=== PATIENT | male | born 1955 | race Caucasian/White ===

== ENCOUNTER → 2018-05-20 | Outpatient (CLI) | payer BC | LOC: M.MRI 07:01 | DX: S46.912A Strain of unspecified muscle, fascia and tendon at shoulder and upper arm level, left arm, initial encounter (principal); S43.402A Unspecified sprain of left shoulder joint, initial encounter; M19.012 Primary osteoarthritis, left shoulder; M75.32 Calcific tendinitis of left shoulder; X58.XXXA Exposure to other specified factors, initial encounter; Y93.89 Activity, other specified; Y92.89 Other specified places as the place of occurrence of the external cause; Y99.8 Other external cause status ==

== ENCOUNTER → 2018-06-27 | Day surgery (SDC) | payer BC ==
[~2018-06-27] MED LIST: ASPIRIN325 PO; LISINOPRIL-HCT1 EAC1 PO; NAPROSYN500 MG PO; OXYCODONE HCL 55 MG PO; TRAMADOL 50 MG50 MG PO; ZOCOR20 MG PO
--- NOTE | ~2018-06-27 | OP ---
[address] [address] OPERATIVE REPORT Name: CHANDNI SALDIVAR Room: [facility].#: [id number] Admission: 06/27/18 Attend Phys: Ivan Olguin DO Discharge: Date of : 55 Report #: [id number] THIS REPORT FOR: //name// CC: Sid Olguin DICTATED BY: Washington Mccurdy DO DATE OF SERVICE: 06/27/2018 PREOPERATIVE DIAGNOSIS: Left shoulder massive rotator cuff tear. POSTOPERATIVE DIAGNOSIS: Left shoulder massive rotator cuff tear. PROCEDURE PERFORMED: 1. Left shoulder arthroscopy. 2. Subacromial decompression. 3. Open acromioplasty. 4. Open rotator cuff repair. SURGEON: Ivan Olguin DO. CONFIGURATION TECHNICIAN: Washington Mccurdy DO ANESTHESIA: General with an interscalene block. ESTIMATED BLOOD LOSS: 10 mL. COMPLICATIONS: None. DISPOSITION: Stable to PACU to be discharged home. INDICATIONS FOR PROCEDURE: The patient is a pleasant 63-year-old male who has been following in the outpatient orthopedic clinic with longstanding left shoulder pain. He has tried several conservative measures of management including corticosteroid injections, NSAID analgesia and activity modifications. He continued to be symptomatic to the point where it is affecting his quality of life. We obtained an MRI of the left shoulder, which demonstrated a massive rotator cuff tear. We discussed treatment options including surgical intervention with left shoulder arthroscopy and rotator cuff repair. Risks, benefits, complications and alternatives of the procedure were discussed with the patient in detail. Risks include but are not limited to blood loss, infection, DVT, PE, failure to alleviate symptoms, need for repeat surgery, and complications of anesthesia. The patient expressed understanding [place] [id number] OPERATIVE REPORT Name: YARIELCHANDNI GOMEZ Room: [facility]..#: [id number] Admission: 06/27/18 Attend Phys: Ivan Olguin DO Discharge: Date of : 55 Report #: [id number] FINDINGS: Upon entering the shoulder joint, there was noted to be absent bicep tendon. There was some inflammatory synovitis noted throughout the shoulder and some degenerative fraying of the labrum anteriorly. There was a massive rotator cuff tear noted involving nearly the entirety of the supraspinatus tendon that was slightly retracted yet mobile. The subscapularis tendon was noted to be intact. The articular cartilage was intact as well. Examination of the subacromial space demonstrated extensive bursal tissue and was noted to be very tight space. DESCRIPTION OF PROCEDURE: The patient was transferred to the operating suite and placed on the operating table in supine position. He was given the benefit of general anesthesia. He was then placed into the beach chair position. The right shoulder area was then prepped and draped in the usual sterile fashion. A timeout was taken to confirm the appropriate patient identification, operative site, procedure to be performed. All in the room were in agreement time-out. Procedure began by incising the posterior viewing portal using an 11 blade scalpel. The camera trocar was then inserted in the shoulder and diagnostic arthroscopy ensued. The above-mentioned findings were noted. The anterior portal was then established under direct visualization using an 18-gauge spinal needle followed by a blunt trocar. Arthroscopic shaver was then inserted into the joint. The inflamed synovitis and the degenerative labrum were then debrided using the arthroscopic shaver. We then used the arthroscopic shaver to prepare the footprint at our attachment site for a rotator cuff repair. The cortical bone was debrided down to the point of good bleeding bone bed. The arthroscope was then inserted into the subacromial space. A lateral portal was established under direct visualization using 18 gauge spinal needle followed by blunt trocar. The arthroscopic shaver was then inserted into the lateral portal. The subacromial decompression was then performed using a combination of the vapor wand and the arthroscopic shaver. The vapor wand was used to debride tissue and inflammation superior along the acromion. The arthroscopic shaver was then used to debride bursal tissue off of the rotator cuff. This allowed for visualization of the rotator cuff tear from a superior viewing point. Again, the cuff tear was noted to be very extensive from an anterior to posterior positioning. Due to the large nature of the rotator cuff, we then elected to convert the procedure to an open rotator cuff repair. A 15 blade scalpel was used to incise approximately 4 cm incision of the anterolateral corner of the acromion. Subcutaneous tissue was dissected sharply down to the deltoid fascia. The deltoid fascia was then split sharply and the fibers of the deltoid were split bluntly down to the level of the rotator cuff. The rotator cuff was well visualized through the deltoid split approach; however, the subacromial space was noted to be very tight without much working room. We then elected to perform an acromioplasty using a high speed bur. The high speed bur was used to shave down the inferior aspect of the acromion. This [address] [address] OPERATIVE REPORT Name: CHANDNI SALDIVAR Room: [facility]#: [id number] Admission: 06/27/18 Attend Phys: Ivan Olguin Discharge: Date of : 55 Report #: [id number] opened up the subacromial space and allowed for more room for the rotator cuff. We then proceeded to repair the rotator cuff using a SpeedBridge construct. Once the first two medial anchors were positioned and anchored into the lateral articular margin. There was noted to be still plenty of room for a third anchor medially. We then elected to place a third anchor in our medial row. Suture from all of our medial anchors were then passed through the rotator cuff. After the suture, the FiberTape were passed through the rotator cuff. The rotator cuff was noted to lay down nicely onto our previously prepared bone bed. A perrin elevator was used to release some adhesions along the superior portion of the rotator cuff, which allowed for better excursion of our tendon. Once these three medial anchors were positioned appropriately and FiberTape was passed through the cuff. We then created a lateral row using 2 anchors. One suture from each of our medial row was inserted with each lateral row anchor. After the final two anchors were positioned, the rotator cuff was visualized and inspected. There was noted to be a good repair without any significant dog ears or residual tears. After the final repair, the shoulder was then thoroughly irrigated. The anterior portion of the deltoid was repaired back down to the acromion using a #2 FiberWire in a [id number] fashion. We then ran a 2-0 Vicryl to close the deltoid fascia. A 2-0 Vicryl was then used to close the subacromial tissue. Final skin closure was performed with a 3-0 V-Loc in a running fashion followed by Dermabond skin glue. The portal sites were closed with 3-0 nylon in a standard interrupted fashion. Sterile dressings were applied consisting of Xeroform and 4 x 4's over the portal sites. A Mepilex dressing was placed on the larger open incision. The patient was placed into a slingshot immobilizer. He was transferred to PACU in stable condition. By: [id number] Amari Olguin DO /sadia
[2018-06-27 10:02] LABS: HEMATOCRIT 44.6 % (42.0-52.0); HEMOGLOBIN 15.2 gm/dL (14.0-18.0); MCH 33.1 pg (26.0-34.0); MCHC 34.1 g/dL (28.0-37.0); MCV 96.8 fL (80.0-100.0); MPV 8.7 fl. (7.2-11.1); RBC 4.61 mil/uL (4.50-6.00); RDW-CV 13.4 % (10.5-14.5); WBC 7.9 thou/uL (4.0-11.0)
[2018-06-27 10:42] LABS: CALCIUM 9.9 mg/dL (8.5-10.1); CREATININE 0.9 mg/dL (0.6-1.3); POTASSIUM 4.3 mmol/L (3.5-5.1)
[2018-06-27 10:46] LABS: ALBUMIN 3.8 g/dL (3.4-5.0); TOTAL BILIRUBIN 0.5 mg/dL (<0.1-1.0); TOTAL PROTEIN 6.9 g/dL (6.4-8.2)
--- NOTE | 2018-06-27 16:42 | EKG ---
[place] [address] ELECTROCARDIOGRAM REPORT Name: CHANDNI SALDIVAR Room: [facility].#: [id number] Admission: 06/27/18 Attend Phys: Ivan Olguin DO Discharge: Date of : 55 Report #: [id number] THIS REPORT FOR: //name// [facility] Test Date: 2018-06-27 Test Time: 10:08:31 Pat Name: CHANDNI SALDIVAR Department: Room: Gender: M Healthcare Educator: : 1955 Requested By: Osman Renteria Order Number: [id number] Sejal MD: Osorio Stephens Measurements Intervals [place] Rate: 68 P: 22 DC: 159 QRS: -37 QRSD: 129 T: 102 QT: 386 QTc: 411 Interpretive Statements Sinus rhythm Nonspecific IVCD with LAD LVH with secondary repolarization abnormality No previous ECG available for comparison Electronically Signed On 06-27-2018 16:42:24 [employer] by Osorio Stephens [email or web address] <ELECTRONICALLY SIGNED> By: Osorio Stephens MD, [facility] 06/27/18 1642 [id number] [id number] Osorio Stephens MD, FACC /EPI
== END | disposition home or self-care (01) ==
LOC: M.SUR 06:37
PROVIDERS: Anesthesiology
DX: M75.102 Unspecified rotator cuff tear or rupture of left shoulder, not specified as traumatic (principal); Z79.899 Other long term (current) drug therapy; Z88.0 Allergy status to penicillin; Z79.82 Long term (current) use of aspirin; Z79.891 Long term (current) use of opiate analgesic

== ENCOUNTER → 2020-04-28 | Outpatient (CLI) | payer MEDICARE, OTHER | LOC: M.LAB 15:19 | PROVIDERS: ATTEND Anesthesiology | DX: Z01.812 Encounter for preprocedural laboratory examination (principal); Z20.828 Contact with and (suspected) exposure to other viral communicable diseases; M18.11 Unilateral primary osteoarthritis of first carpometacarpal joint, right hand ==